=== PATIENT | female | born 1975 | race Asian ===

== ENCOUNTER 2018-10-10 20:58 | Emergency (ER) | payer MEDICAID ==
[~2018-10-10] VITALS: Ht 154.9 cm; Wt 52.2 kg
[2018-10-10 21:05] VITALS: BP_SYST 135
--- NOTE | 2018-10-10 21:09 | NUR ---
Patient triaged and placed in waiting room. VSS and patient appears in no acute distress at this time. Accompanied by visitor, awaiting available bed, and MD notified of need for MSE.
--- NOTE | 2018-10-10 21:15 | NUR ---
Patient to ER bed 04 for evaluation. Side rails up. Report given to Med GUEVARA.
--- NOTE | 2018-10-10 21:18 | NUR ---
Pt AAOx4 ambulated into ED c/o 12/24 pain to R upper back pain x 2 days s/p throwing out back while carrying flower pots at work yesterday. Pt states her pain was unbearable to the point she could not stand. No other injuries/complaints per pt/noted. Will continue to monitor.
--- NOTE | 2018-10-10 21:25 | NUR ---
ER Dr. Livingston at bedside examining patient.
[2018-10-10] MEDS ORDERED: KETOROLAC TROMETHAMINE 60 MG/2 ML VIAL IM ONE (21:45)
[2018-10-10 22:28] VITALS: BP_SYST 135
--- NOTE | 2018-10-10 22:28 | NUR ---
Patient given written and verbal discharge instructions and verbalizes understanding. ER MD discussed with patient the results and treatment provided. Patient in stable condition. ID arm band removed. Rx of Naprosyn given. Patient educated on pain management and to follow up with PMD. Pain Scale 0/10. Opportunity for questions provided and answered. Medication side effect fact sheet provided.
== END 2018-10-10 22:28 | disposition home or self-care (01) ==
LOC: SED 20:58
DX: S23.3XXA Sprain of ligaments of thoracic spine, initial encounter (principal); R03.0 Elevated blood-pressure reading, without diagnosis of hypertension; X50.0XXA Overexertion from strenuous movement or load, initial encounter; Y93.89 Activity, other specified; Y92.89 Other specified places as the place of occurrence of the external cause; Y99.8 Other external cause status
CPT/HCPCS: 81002; 81025; 96372; 99283; J1885

== ENCOUNTER 2021-09-23 01:59 | Emergency (ER) | payer MEDICAID ==
[~2021-09-23] VITALS: Ht 154.9 cm; Wt 55.8 kg
[2021-09-23 02:49] VITALS: BP_SYST 146
--- NOTE | 2021-09-23 02:59 | NUR ---
PT TO ROOM 5. AMBULATORY WITH STEADY GAIT. NO S/S OF DISTRESS NOTED.
--- NOTE | 2021-09-23 03:19 | NUR ---
Pt to bed 5 w/ c/o dry cough x 5 days. Pt ambulates with strong steady gait. Pt denies fever, body aches, and chills. Respirations even and unlabored. Pulse oximetry taken. Pt states "scratchy throat". Awaiting lab results.
--- NOTE | 2021-09-23 04:00 | NUR ---
MD at bedside at this time updating pt on plan of care and assessing patient.
[2021-09-23] MEDS ORDERED: ALBMDI INH (05:21)
[2021-09-23] MEDS ORDERED: PRED20TA PO (05:21)
[2021-09-23 05:42] VITALS: BP_SYST 134
--- NOTE | 2021-09-23 05:44 | NUR ---
Patient given written and verbal discharge instructions and verbalizes understanding. ER MD discussed with patient the results and treatment provided. Patient in stable condition. ID arm band removed. Rx of prednisone and albuterol INH given. Patient educated on pain management and to follow up with PMD. Pain Scale 0/10. Opportunity for questions provided and answered. Medication side effect fact sheet provided.
== END 2021-09-23 05:44 | disposition home or self-care (01) ==
LOC: SED 01:59
DX: J02.8 Acute pharyngitis due to other specified organisms (principal); R06.02 Shortness of breath; Z20.822 Contact with and (suspected) exposure to COVID-19
CPT/HCPCS: 36415; 99283